=== PATIENT | female | born 1990 | race American Indian/Alaskan Native ===

== ENCOUNTER 2017-09-02 11:45 | Outpatient (CLI) | payer OTHER | END 2017-09-02 12:40 | disposition home or self-care (01) | LOC: NST 11:45 | DX: Z34.83 Encounter for supervision of other normal pregnancy, third trimester (principal) ==

== ENCOUNTER 2017-09-19 07:57 | Inpatient (IN) | payer OTHER ==
[~2017-09-19] VITALS: Ht 160 cm; Wt 86.2 kg
[2017-09-19] MEDS ORDERED: PRENATAL TABLE1 EAC1 PO (09:29)
[2017-09-19] MEDS ORDERED: VENOFER200 MG/10 IV (09:32)
[2017-09-19] MEDS ORDERED: VALTREX1000 MG PO (09:33)
== END 2017-09-21 10:12 | disposition home or self-care (01) | DRG 775 ==
LOC: LDR 07:57 → SURG-SUITE 16:02
PROC: 10E0XZZ Delivery of Products of Conception, External Approach (ICD-10-PCS; principal; 2017-09-19)
PROC: 0KQM0ZZ Repair Perineum Muscle, Open Approach (ICD-10-PCS; 2017-09-19)
PROC: 0W8NXZZ Division of Female Perineum, External Approach (ICD-10-PCS; 2017-09-19)
PROC: 3E033VJ Introduction of Other Hormone into Peripheral Vein, Percutaneous Approach (ICD-10-PCS; 2017-09-19)
PROC: 4A033R1 Measurement of Arterial Saturation, Peripheral, Percutaneous Approach (ICD-10-PCS; 2017-09-19)
PROC: 4A1HXCZ Monitoring of Products of Conception, Cardiac Rate, External Approach (ICD-10-PCS; 2017-09-19)
DX: O70.1 Second degree perineal laceration during delivery (principal); Z37.0 Single live birth; O99.824 Streptococcus B carrier state complicating childbirth; Z3A.36 36 weeks gestation of pregnancy

== ENCOUNTER 2019-03-10 15:30 | Inpatient (IN) | payer OTHER ==
[~2019-03-10] VITALS: Ht 160 cm; Wt 855.9 kg
[~2019-03-10 15:30] MED LIST: PRENATAL TABLE1 EAC1 PO; VALTREX1000 MG PO; VENOFER200 MG/10 IV
== END 2019-03-30 11:27 | disposition home or self-care (01) | DRG 807 ==
LOC: SURG-SUITE 03-28 14:13 → LDR 03-28 14:13 → SURG-SUITE 03-28 18:00 → LDR 04-03 15:25
PROVIDERS: ADMIT Obstetrics & Gynecology
PROC: 10E0XZZ Delivery of Products of Conception, External Approach (ICD-10-PCS; principal; 2019-03-28)
PROC: 0KQM0ZZ Repair Perineum Muscle, Open Approach (ICD-10-PCS; 2019-03-28)
PROC: 0W8NXZZ Division of Female Perineum, External Approach (ICD-10-PCS; 2019-03-28)
PROC: 10907ZC Drainage of Amniotic Fluid, Therapeutic from Products of Conception, Via Natural or Artificial Opening (ICD-10-PCS; 2019-03-28)
PROC: 4A1HXCZ Monitoring of Products of Conception, Cardiac Rate, External Approach (ICD-10-PCS; 2019-03-28)
DX: O70.1 Second degree perineal laceration during delivery (principal); Z37.0 Single live birth; Z3A.39 39 weeks gestation of pregnancy